=== PATIENT | male | born 1965 | race Caucasian/White ===

== ENCOUNTER 2019-07-20 12:14 | Emergency (ER) | payer OTHER ==
[2019-07-20 12:51] VITALS: BP 138/79; PULSE 78; TEMP 97.3; BMI 30.4
--- NOTE | 2019-07-20 15:16 | PDOC ---
History of Present Illness - General Chief Complaint: Back Pain Stated Complaint: BACK PAIN Time Seen by Provider: 07/20/19 13:28 History Source: Patient - History of Present Illness Timing/Duration: reports: intermittent Abdominal Pain Onset Location: reports: generalized abdomen Past History - Past Medical History Allergies/Adverse Reactions: Allergies Allergy/AdvReac Type Severity Reaction Status Date / Time pollen extracts Allergy Verified 04/17/15 18:45 Home Medications: Ambulatory Orders Diphenhydramine HCl [Benadryl Capsule -] 25 mg PO DAILY PRN 04/17/15 Loratadine [Claritin -] 10 mg PO DAILY PRN 04/17/15 Aspirin [ASA -] 81 mg PO DAILY #30 tab.chew 04/19/15 Atorvastatin Ca [Lipitor -] 10 mg PO HS #30 tablet 04/19/15 Anemia: No Asthma: Yes Cancer: No Cardiac Disorders: No CVA: No COPD: No CHF: No Dementia: No Diabetes: No GI Disorders: No Disorders: No HTN: No Hypercholesterolemia: No Liver Disease: No Seizures: No Thyroid Disease: No - Psycho Social/Smoking Cessation Hx Smoking History: Never smoked Information on smoking cessation initiated: No Hx Alcohol Use: No Drug/Substance Use Hx: No Substance Use Type: Alcohol Review of Systems - Review of Systems Constitutional: No: Chills, Fever Respiratory: No: Shortness of Breath Cardiac (ROS): No: Chest Pain ABD/GI: Yes: Nausea, Abdominal cramping. No: Constipated, Diarrhea, Vomiting : No: Burning, Dysuria, Frequency, Flank Pain, Hematuria *Physical Exam - Vital Signs Last Vital Signs Temp Pulse Resp BP Pulse Ox 97.3 F L 78 20 138/79 99 07/20/19 12:47 07/20/19 12:47 07/20/19 12:47 07/20/19 12:47 07/20/19 12:47 - Physical Exam 07/20/19 16:28 Patient well-appearing, sitting on chair and talking on his phone at present General Appearance: Yes: Appropriately Dressed. No: Apparent Distress HEENT: positive: Normal Voice Neck: positive: Supple Respiratory/Chest: positive: Lungs Clear, Normal Breath Sounds. negative: Respiratory Distress Cardiovascular: positive: Regular Rate, S1, S2 Gastrointestinal/Abdominal: positive: Normal Bowel Sounds, Soft. 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 pylori 1 week ago, follows up with Dr. Webster of GI and now here with vague diffuse abdominal pain x5 days, 5 out of 10, unable to describe, comes and goes with possible nausea, no vomiting, change in bowel movements, melen, BRBPR, fever, chills or acute urinary issues. Denies chest pain, shortness of breath, palpitations, leg pain or swelling. States symptoms not similar to H. pylori and was not complaining of abdominal pain at the time of diagnosis. 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 On reassessment, patient abdomen remains benign. Reports no abd pain currently and has not had pain since in ER. I paged Dr. Webster to discuss disposition and awaiting MD's call back 07/20/19 16:30 Patient declines to wait for Dr. Webster to call me back. States he feels well enough to go home and will follow up with Dr. Webster himself Discharge - Discharge Information Problems reviewed: Yes Clinical Impression/Diagnosis: Abdominal pain Qualifiers: Abdominal location: unspecified location Qualified Code(s): R10.9 - Unspecified abdominal pain Condition: Improved Disposition: HOME - Follow up/Referral Referrals: Kuldeep Sarabia MD [Primary Care Provider] - - Patient Discharge Instructions Patient Printed Discharge Instructions: DI for Abdominal Pain-Adult Additional Instructions: La causa de spencer dolor abdominal no est lou en marco a momento, ya que spencer examen abdominal fue normal y spencer anlisis de aj tambin fue normal. Si los sntomas reaparecen o empeoran, regrese para diogenes nueva evaluacin, incluida diogenes posible TC en reagan momento. De lo contrario, mike un seguimiento con el Dr. Eleanor Arrington Language: HUNGARIAN - Post Discharge Activity
[2019-07-20 15:45] LABS: BASO % 0.4 % (0-2.0); EOS % 0.6 % (0-4.5); HEMATOCRIT 45.2 % (35.4-49); HEMOGLOBIN 14.8 GM/dL (11.7-16.9); LYMPH % 42.5 % (8-40); MCH 29.8 pg (25.7-33.7); MCHC 32.7 g/dl (32.0-35.9); MEAN CELL VOLUME 90.9 fl (80-96); MEAN PLT VOLUME 9.4 fl (7.5-11.1); MONO % 10.3 % (3.8-10.2); NEUT % 46.2 % (42.8-82.8); PLATELET COUNT 178 K/MM3 (134-434); RBC 4.98 M/mm3 (4.00-5.60); RDW 13.8 % (11.9-15.9); WHITE BLOOD COUNT 3.2 K/mm3 (4.0-10.0)
[2019-07-20 15:48] LABS: PH,URINE 7.5 (5.0-8.0); URINE APPEARANCE CLEAR; URINE BILIRUBIN NEGATIVE (NEGATIVE); URINE COLOR YELLOW; URINE GLUCOSE (UA) NEGATIVE (NEGATIVE); URINE KETONE TRACE (NEGATIVE); URINE LEUK ESTERASE NEGATIVE (NEGATIVE); URINE NITRITE NEGATIVE (NEGATIVE); URINE PROTEIN NEGATIVE (NEGATIVE); URINE UROBILINOGEN 0.2 mg/dL (0.2-1.0)
[2019-07-20 16:13] LABS: ALBUMIN 3.8 g/dl (3.4-5.0); BILIRUBIN,TOTAL 0.3 mg/dL (0.2-1); BLOOD UREA NITROGEN 15.5 mg/dL (7-18); CALCIUM 9.1 mg/dL (8.5-10.1); CREATININE 1.4 mg/dL (0.55-1.3); POTASSIUM 4.1 mmol/L (3.5-5.1)
== END 2019-07-20 18:00 | disposition home or self-care (01) ==
LOC: JER 12:14 → JERFT 12:14 → JER 18:00
DX: R10.84 Generalized abdominal pain (principal); Z85.528 Personal history of other malignant neoplasm of kidney; Z90.5 Acquired absence of kidney; Z86.19 Personal history of other infectious and parasitic diseases; B96.81 Helicobacter pylori [H. pylori] as the cause of diseases classified elsewhere; J45.909 Unspecified asthma, uncomplicated; Z91.048 Other nonmedicinal substance allergy status
CPT/HCPCS: 36415; 80053; 81003; 83690; 85025; 99281-25

== ENCOUNTER 2020-05-20 10:30 | Emergency (ER) | payer OTHER ==
[2020-05-20 10:39] VITALS: BP 129/93; PULSE 73; TEMP 98.3; BMI 28.1
--- OUTSIDE RECORDS SUMMARY | 2020-05-20 10:47 | XMS ---
:1965 Author Organization [facility] Support Name Relationship Address Phone RADHA PAIZ SPOUSE [address] [place] [address] NA Unavailable Unavailable Unavailable DAYANA MCKEON SP [address] [place] [address] SE Unavailable Unavailable Unavailable MELANIE CARRILLO DAUGHTER [address] [facility] [place] [id number] Re-disclosure Warning The records that you are about to access may contain information from federally- assisted alcohol or drug abuse programs. If such information is present, then the following federally mandated warning applies: This information has been disclosed to you from records protected by federal confidentiality rules (42 CFR part 2). The federal rules prohibit you from making any further disclosure of this information unless further disclosure is expressly permitted by the written consent of the person to whom it pertains or as otherwise permitted by 42 CFR part 2. A general authorization for the release of medical or other information is NOT sufficient for this purpose. The Federal rules restrict any use of the information to criminally investigate or prosecute any alcohol or drug abuse patient.The records that you are about to access may contain highly sensitive health information, the redisclosure of which is protected by Article 27-F of the [facility] Public Health law. If you continue you may haveaccess to information: Regarding HIV / AIDS; Provided by facilities licensed or operated by the [facility] Office of Mental Health; or Provided by the [facility] Office for People With Developmental Disabilities. If such information is present, then the following [facility] mandated warning applies: This information has been disclosed to you from confidential records which are protected by state law. State law prohibits you from making any further disclosure of this information without the specific written consent of the person to whom it pertains, or as otherwise permitted by law. Any unauthorized further disclosure in violation of state law may result in a fine or long-term sentence or both. A general authorization for the release of medical or other information is NOT sufficient authorization for further disclosure. Insurance Providers Payer name Policy type Policy ID Covered Covered constitution party's Policy P aury / Coverage constitution party ID relationship to [employer] Inf ormation type gates LALI [id number] SP [id number] 800 HEALTH NON CAP LALI [id number] SP [id number] ESSENTIAL PLAN 1 2 LAIL W [id number] Results ID Date Data Source [id number] 12/08/2019 12:00:00 AM EDT [place] Name Value Range Interpretation Code Description Data Cindy rce(s) Supporting Document(s ) 2019-nCoV [facility] RNA XXX DELANEY+probe- Imp This lab was ordered by [facility] [id number] and reported by [employer] Procedure
--- NOTE | 2020-05-20 11:39 | PDOC ---
History of Present Illness - General Chief Complaint: Ear Problem Stated Complaint: EARACHE Time Seen by Provider: 05/20/20 11:09 History Source: Patient Exam Limitations: No Limitations - History of Present Illness Initial Comments: 05/20/20 11:27 54-year-old male presents to ED with complaints of ringing to the right ear since Saturday after cleaning his ear with a Q-tip. Patient stated he did not place it in all the way but did hear a "cracking" sound but denied any hearing changes, dizziness, head injury, recent dental work, teeth grinding, headache, history of depression or anxiety, or use of anticoagulation therapy including aspirin. He denies increase of sound when lying or standing or specific position changes. Patient states the ringing sound does decrease when he has other noise in the background otherwise doing silent moments he states the sound of ringing is increased. Is this a multiple visit Asthma Patient?: No Timing/Duration: other Severity: mild Associated Symptoms: reports: denies symptoms Past History - Travel History Traveled outside of the country in the last 30 days: No Close contact w/someone who was outside of country & ill: No - Medical History Allergies/Adverse Reactions: Allergies Allergy/AdvReac Type Severity Reaction Status Date / Time pollen extracts Allergy Verified 05/20/20 10:33 Home Medications: Ambulatory Orders Diphenhydramine HCl [Benadryl Capsule -] 25 mg PO DAILY PRN 04/17/15 Loratadine [Claritin -] 10 mg PO DAILY PRN 04/17/15 Aspirin [ASA -] 81 mg PO DAILY #30 tab.chew 04/19/15 Atorvastatin Ca [Lipitor -] 10 mg PO HS #30 tablet 04/19/15 Anemia: No Asthma: Yes Cancer: No Cardiac Disorders: No CVA: No COPD: No CHF: No Dementia: No Diabetes: No GI Disorders: No Disorders: No HTN: No Hypercholesterolemia: No Liver Disease: No Seizures: No Thyroid Disease: No Other medical history: BPH - Psycho-Social/Smoking History Patient Lives Alone: No Lives with/in: spouse/SO Smoking History: Never smoked Have you smoked in the past 12 months: No - Substance Abuse Hx (Audit-C & DAST Scrn) How often the patient has a drink containing alcohol: Never Score: In Men: 4 or > Positive; In Women: 3 or > Positive: 0 Screen Result (Pos requires Nsg. Audit-10AR): Negative In the last yr the pt used illegal drug/Rx for NonMed reason: No Score: Yes response is considered Positive: 0 Screen Result (Positive result requires Nsg. DAST-10): Negative Review of Systems - Review of Systems Able to Perform ROS?: No Is the patient limited Citizen Of [place] proficient: No Constitutional: No: Symptoms Reported HEENTM: Yes: Tinnitus. No: Hearing Loss Respiratory: No: Symptoms reported Cardiac (ROS): No: Symptoms Reported ABD/GI: No: Symptoms Reported : No: Symptoms Reported Musculoskeletal: No: Symptoms Reported Integumentary: No: Symptoms Reported Neurological: No: Symptoms reported Hematologic/Lymphatic: No: Symptoms Reported *Physical Exam - Vital Signs Last Vital Signs Temp Pulse Resp BP Pulse Ox 98.3 F 73 16 129/93 100 05/20/20 10:33 05/20/20 10:33 05/20/20 10:33 05/20/20 10:33 05/20/20 10:33 - Physical Exam General Appearance: Yes: Nourished, Appropriately Dressed. No: Apparent Distress HEENT: positive: TMs Normal (Pearly cassidy clear noted cochlear bone.). negative: Pale Conjunctivae Neck: positive: Supple. negative: Decreased range of motion, Lymphadenopathy (R), Lymphadenopathy (L) Respiratory/Chest: positive: Lungs Clear, Normal Breath Sounds. negative: Respiratory Distress, Accessory Muscle Use Gastrointestinal/Abdominal: negative: Distended Extremity: positive: Normal Inspection Integumentary: positive: Normal Color Neurologic: positive: diamond cleaner II-XII NML intact, Motor Strength 5/5 (Ambulatory) Medical Decision Making - Medical Decision Making 05/20/20 11:42 Chief complaint: Patient with ringing to right ear for the past 5 days without other associated symptoms. Exam: Patient with no neurofocal deficit. Otherwise normal physical exam vital signs stable. Plan: Based on physical exam history of present illness patient will be given referral to ENT Discharge - Discharge Information Problems reviewed: Yes Clinical Impression/Diagnosis: Tinnitus Condition: Good Disposition: HOME - Follow up/Referral Referrals: Frederick Valladares MD [Staff Physician] - - Patient Discharge Instructions Patient Printed Discharge Instructions: DI for Tinnitus, Tinnitus (Alternative Therapy) Additional Instructions: If symptoms continue over the next few days and do not subside slowly please follow-up with referred ENT specialist Print Language: LAO - Post Discharge Activity
== END 2020-05-20 11:49 | disposition home or self-care (01) ==
LOC: JER 10:30
DX: H93.11 Tinnitus, right ear (principal)
CPT/HCPCS: 99282-25

== ENCOUNTER 2021-01-28 20:43 | Emergency (ER) | payer OTHER ==
[2021-01-28 21:01] VITALS: TEMP 98.3; BMI 27.9
[2021-01-28] MEDS ORDERED: ACETAMINOPHEN 1000 MG/100 ML VIAL (NON FORMULARY) IVPB ONE (21:48)
[2021-01-28 21:58] LABS: BASO % 0.7 % (0-2.0); HEMATOCRIT 45.5 % (35.4-49); HEMOGLOBIN 15.3 GM/dL (11.7-16.9); MCH 30.5 pg (25.7-33.7); MCHC 33.7 g/dl (32.0-35.9); MEAN CELL VOLUME 90.5 fl (80-96); MEAN PLT VOLUME 9.4 fl (7.5-11.1); MONO % 6.3 % (3.8-10.2); PLATELET COUNT 225 10^3/uL (134-434); RBC 5.03 M/mm3 (4.00-5.60); WHITE BLOOD COUNT 8.2 K/mm3 (4.0-10.0)
[2021-01-28] MEDS ORDERED: ACETAMINOPHEN INJECTION 100 ML IVPB ONE (22:00)
[2021-01-28 22:17] LABS: CALCIUM 9.1 mg/dL (8.5-10.1)
[2021-01-28 22:18] LABS: ALBUMIN 4.1 g/dl (3.4-5.0)
[2021-01-28 22:21] LABS: CREATININE 1.6 mg/dL (0.55-1.3)
[2021-01-28 22:22] LABS: BILIRUBIN,TOTAL 0.4 mg/dL (0.2-1); TOT PROT 7.7 g/dl (6.4-8.2)
[2021-01-28 22:25] LABS: EPI CELLS 1 /uL (0-25.1); HYALINE CASTS 0 /uL (0-3.1); PH,URINE 6.5 (5.0-8.0); URINE APPEARANCE CLEAR; URINE BILIRUBIN NEGATIVE (NEGATIVE); URINE COLOR DK YELLOW; URINE GLUCOSE (UA) NEGATIVE (NEGATIVE); URINE KETONE NEGATIVE (NEGATIVE); URINE LEUK ESTERASE NEGATIVE (NEGATIVE); URINE NITRITE POSITIVE (NEGATIVE); URINE PROTEIN NEGATIVE (NEGATIVE); URINE RBC 1 /uL (0-23.9); URINE WBC 5 /uL (0-25.8)
[2021-01-28] MEDS ORDERED: LIDOCAINE 5% TOPICAL PATCH TP ONE (22:28)
[2021-01-28] MEDS ORDERED: LIDOCAINE 5% TOPICAL PATCH ONE (22:55)
[2021-01-28 23:01] LABS: BLOOD UREA NITROGEN 21.7 mg/dL (7-18)
[2021-01-29 01:02] VITALS: BP 151/86; PULSE 79
== END 2021-01-29 01:12 | disposition home or self-care (01) ==
LOC: JER 20:43
PROC: 3E033NZ Introduction of Analgesics, Hypnotics, Sedatives into Peripheral Vein, Percutaneous Approach (ICD-10-PCS; principal; 2021-01-28)
DX: R10.84 Generalized abdominal pain (principal)
CPT/HCPCS: 36415; 71250-TC; 72131-TC; 74176-TC; 80053; 81003; 85025; 93005; 93010; 99285-25; J0131

== ENCOUNTER 2021-02-08 10:01 | Emergency (ER) | payer OTHER ==
[2021-02-08 10:12] VITALS: BP 127/72; PULSE 96; TEMP 98; BMI 29.6
[2021-02-08] MEDS ORDERED: SODIUM CHLORIDE 0.9% 500 ML INFUS.BAG IV ONE ×2 (11:05→15:15)
[2021-02-08] MEDS ORDERED: ONDANSETRON 4 MG/2 ML VIAL IVPUSH ONE (11:05)
[2021-02-08] MEDS ORDERED: ONDANSETRON 4 MG/2 ML VIAL ONE (11:23)
[2021-02-08 11:45] LABS: URINE APPEARANCE CLEAR; URINE BILIRUBIN NEGATIVE (NEGATIVE); URINE COLOR YELLOW; URINE GLUCOSE (UA) NEGATIVE (NEGATIVE); URINE KETONE NEGATIVE (NEGATIVE); URINE LEUK ESTERASE NEGATIVE (NEGATIVE); URINE NITRITE NEGATIVE (NEGATIVE); URINE PROTEIN TRACE (NEGATIVE); URINE UROBILINOGEN 0.2 mg/dL (0.2-1.0)
[2021-02-08 11:50] LABS: BASO % 0.1 % (0-2.0); EOS % 0.2 % (0-4.5); HEMOGLOBIN 15.3 GM/dL (11.7-16.9); LYMPH % 4.2 % (8-40); MCH 29.9 pg (25.7-33.7); MCHC 33.2 g/dl (32.0-35.9); MEAN CELL VOLUME 89.9 fl (80-96); MEAN PLT VOLUME 9.4 fl (7.5-11.1); NEUT % 92.5 % (42.8-82.8); PLATELET COUNT 204 10^3/uL (134-434); RBC 5.12 M/mm3 (4.00-5.60); WHITE BLOOD COUNT 10.5 K/mm3 (4.0-10.0)
[2021-02-08 12:11] LABS: CALCIUM 8.8 mg/dL (8.5-10.1)
[2021-02-08 12:12] LABS: BLOOD UREA NITROGEN 25.4 mg/dL (7-18)
[2021-02-08 12:14] LABS: CREATININE 1.3 mg/dL (0.55-1.3)
[2021-02-08 12:16] LABS: BILIRUBIN,TOTAL 0.4 mg/dL (0.2-1); TOT PROT 7.2 g/dl (6.4-8.2)
[2021-02-08 12:33] LABS: ANISOCYTOSIS 0; HELMET CELLS 0; HOWELL-JOLLY BODIES 0; MACROCYTOSIS 0; OVALOCYTE 0; PLATELET ESTIMATE NORMAL; ROULEAU 0; SICKELED CELLS 0; TARGET CELLS 0; TEAR DROP CELLS 0; TOXIC GRANULATION 0
== END 2021-02-08 18:53 | disposition home or self-care (01) ==
LOC: JERFT 10:01 → JER 10:01 → JERFT 18:53
PROC: 3E033GC Introduction of Other Therapeutic Substance into Peripheral Vein, Percutaneous Approach (ICD-10-PCS; principal; 2021-02-08)
DX: K52.9 Noninfective gastroenteritis and colitis, unspecified (principal)
CPT/HCPCS: 36415; 71046-TC-FY; 74176-TC; 76705-TC; 80053; 81003; 83690; 85025; 87086; 99285-25